=== PATIENT | female | born 1990 | race African-American/Black ===

== ENCOUNTER 2018-06-23 09:29 | Emergency (ER) | payer OTHER ==
[~2018-06-23] VITALS: Ht 172.7 cm; Wt 64.4 kg
[~2018-06-23 09:29] MED LIST: A.E.R PADS1 JAR TOP; ACETAMINOPHEN-1 EAC1 PO; APAP500 PO; CLEOCIN HCL150 MG PO; CYCLOBENZAPRINE5 MG PO; DERMOPLAST SPRA56 ML; DERMOPLAST SPRA56 ML TOP; HYDROCORTISONE30 G9 RECTAL; HYDROXYZINE HCL25 M1 PO; HYDROXYZINE PAM50 MG; IBUPROFEN 600600 M1; IBUPROFEN 600600 M1 PO; KEFLEX500 M1 PO; LANOLIN56 GM; LANOLIN56 GM TOP; MACROBID 100 M100 M1 PO; MOBIC15 MG PO; MONISTAT 745 GM VG; MORPHINE SULFAT15 M3 PO; NORCO 5-325 TA1 EACH PO; ONDANSETRON HCL4 M2 PO; PRENATAL; TRINATE TABLET1 TAB PO; TUCKS MEDICATE1 EAC1; VISTARIL 25 MG25 M1; ZOFRAN4 MG PO
[2018-06-23 09:44] LABS: URINE BILIRUBIN NEGATIVE (Negative); URINE BLOOD 1+ (Negative); URINE CLARITY SL CLOUDY; URINE COLOR YELLOW; URINE GLUCOSE-RANDOM* NEGATIVE (Negative); URINE KETONES NEGATIVE (Negative); URINE NITRITE-REFLEX NEGATIVE (Negative); URINE PROTEIN (DIPSTICK) NEGATIVE (Negative); URINE SPECIFIC GRAVITY 1.015 (1.005-1.035); URINE UROBILINOGEN 0.2 E.U./dl (0.2-1.0)
[2018-06-23 09:45] LABS: URINE LEUKOCYTES-REFLEX 2+ (Negative)
[2018-06-23 09:57] LABS: BACTERIA-REFLEX 1-9 Few /HPF (None Seen); CASTS None Seen /LPF (None Seen); CRYSTALS None Seen /LPF (None Seen); SQUAMOUS 0-3 Few /LPF (0-3); URINE RBC 3-10 Few /HPF (0-2); URINE WBC-REFLEX >25 Many /HPF (0-5)
[2018-06-23 10:11] LABS: ABSOLUTE NEUTROPHILS 7.8 thou/uL (1.4-8.2); BASOPHILS 0.3 % (0.0-2.0); EOSINOPHILS 0.3 % (0.0-3.0); HEMATOCRIT 41.4 % (37.0-47.0); HEMOGLOBIN 13.9 gm/dL (12.0-15.0); LYMPHOCYTES 13.8 % (24.0-44.0); MCH 29.8 pg (26.0-34.0); MCHC 33.6 g/dL (28.0-37.0); MCV 88.7 fL (80.0-100.0); MONOCYTES 3.7 % (1.0-8.0); PLATELET COUNT 149 thou/uL (150-400); POLYS 81.9 % (36.0-66.0); RBC 4.67 mil/uL (4.20-5.00); WBC 9.5 thou/uL (4.0-11.0)
[2018-06-23 10:18] LABS: CALCIUM 9.6 mg/dL (8.5-10.1); CREATININE 0.8 mg/dL (0.6-1.0); POTASSIUM 3.8 mmol/L (3.5-5.1)
[2018-06-23 10:24] LABS: TOTAL BILIRUBIN 0.4 mg/dL (<0.1-1.0); TOTAL PROTEIN 8.5 g/dL (6.4-8.2)
[2018-06-23] MEDS ORDERED: NORCO 5-325 TA1 EACH PO (11:47)
[2018-06-23] MEDS ORDERED: KEFLEX500 M1 PO (11:47)
[2018-06-23] MEDS ORDERED: ONDANSETRON HCL4 M2 PO (11:47)
[2018-06-23] MEDS ORDERED: DIFLUCAN200 MG PO (12:33)
== END 2018-06-23 12:37 | disposition home or self-care (01) ==
LOC: ER 09:29
PROVIDERS: Physician Assistant
DX: N39.0 Urinary tract infection, site not specified (principal); F17.210 Nicotine dependence, cigarettes, uncomplicated; J45.909 Unspecified asthma, uncomplicated; Z88.6 Allergy status to analgesic agent; Z91.018 Allergy to other foods